=== PATIENT | male | born 1935 | race Hispanic/Latino ===

== ENCOUNTER 2018-04-10 06:15 | Day surgery (SDC) | payer MEDICARE ==
[~2018-04-10] VITALS: Ht 172.7 cm; Wt 83.9 kg
[~2018-04-10 06:15] MED LIST: BACTRIM DS1 TAB OR; CEPHALEXIN500 M1 OR; CIPRO XR500 M2 PO; CIPROFLOXACN250 MG PO; DILAUDID 2MG2 MG/TA1 PO; IBUPROFEN; ROBITUSSIN AC10 ML OR; TYLENOL325 MG PO
[2018-04-10] MEDS ORDERED: PERCOCET 5/325M1 TAB PO (09:07)
[2018-04-10] MEDS ORDERED: MOTRIN800 MG PO (09:07)
[2018-04-10 10:26] VITALS: BP 165/73
== END 2018-04-10 10:31 | disposition home or self-care (01) ==
LOC: ORM 06:15
PROVIDERS: ATTEND Surgery
PROC: 0YU50JZ Supplement Right Inguinal Region with Synthetic Substitute, Open Approach (ICD-10-PCS; principal; 2018-04-10)
DX: K40.90 Unilateral inguinal hernia, without obstruction or gangrene, not specified as recurrent (principal); M19.90 Unspecified osteoarthritis, unspecified site